=== PATIENT | male | born 1960 | race Caucasian/White ===

== ENCOUNTER 2019-05-11 06:04 | Observation (INO) ==
--- NOTE | 2019-04-20 13:30 | Anesthesiology Consultation ---
Date of Service April 20, 2019 Assessment & Plan (1) Encounter for pre-operative examination: Chart Review Chart Review: Acceptable Risk for Surgery and Patient NOT seen in Pre Admission Testing Consults Requested none History Surgery Operation Date: 05/11/19 10:25 Proposed Procedures p C3-C4 Anterior Cervical Discectomy Fusion, Spinal Cord Monitoring - Elias Saaverda DO Height/Weight Height: 6 ft Weight: 81.647 kg Allergies Allergy/AdvReac Type Severity Reaction Status Date / Time No Known Allergies Allergy Verified 04/18/19 15:39 Medications Home Medications Medication Instructions Recorded Confirmed Last Taken baclofen 10 mg PO TID PRN 04/18/19 04/18/19 Unknown Past Medical History Medical History Chronic back pain 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
[~2019-05-11 06:04] MED LIST: ACETAMINOPHEN 500 MG TAB PO SCH; CEFAZOLIN 2000MG 2,000 MG/15 ML SYR IV SCH; CeleBREX 200 MG CAP PO SCH; GABAPENTIN 600 MG DOSE PO SCH; LR 15ML/HR IV SCH
[2019-05-11] MEDS ORDERED: MIDAZOLAM HCL 1 MG/ML 2ML VIAL ONE (06:29)
[2019-05-11] MEDS ORDERED: fentaNYL citrate 100 MCG/2 ML VIAL ONE ×4 (06:29→08:58)
[2019-05-11] MEDS ORDERED: HYDROmorphone INJ 2 MG/ML SYR/VIAL ONE (06:30)
[2019-05-11] MEDS ORDERED: GLYCOPYRROLATE 0.2 MG/ML VIAL ONE (06:31)
[2019-05-11] MEDS ORDERED: DEXAMETHASONE SOD INJ 4 MG/ML VIAL ONE (06:31)
[2019-05-11] MEDS ORDERED: ONDANSETRON INJ 2 MG/ML 2 ML VIAL ONE (06:31)
[2019-05-11] MEDS ORDERED: PROPOFOL IV EMULSION 10 MG/ML 20 ML VIAL IV ONE (06:31)
[2019-05-11] MEDS ORDERED: ROCURONIUM BROMIDE 10 MG/ML 5 ML VIAL ONE (06:31)
[2019-05-11] MEDS ORDERED: LIDOCAINE HCL 2% 2 ML VIAL/AMP(20MG/ML) INFIL ONE (06:31)
[2019-05-11] MEDS ORDERED: NEOSTIGMINE METHYLSULFATE 1 MG/ML 10ML VIAL ONE (06:31)
[2019-05-11] MEDS ORDERED: PROPOFOL IV EMULSION 10 MG/ML 100 ML VIAL IV ONE (06:45)
[2019-05-11] MEDS ORDERED: BACITRACIN INJ 50,000 UNIT VIAL ONE (06:56)
[2019-05-11] MEDS ORDERED: LABETALOL HCL IV 5 MG/ML 20ML IV PRN (07:15)
[2019-05-11] MEDS ORDERED: ONDANSETRON INJ 2 MG/ML 2 ML VIAL IV PRN ×2 (07:15→10:34)
[2019-05-11] MEDS ORDERED: HYDROmorphone INJ 1 MG/ML SYRINGE IV PRN ×2 (07:15→10:34)
[2019-05-11] MEDS ORDERED: ATROPINE SULFATE 0.1 MG/ML 10ML SYR IV PRN (07:15)
[2019-05-11] MEDS ORDERED: PROMETHAZINE HCL 12.5 MG in SODIUM CHLORIDE 0.9% 50 ML IV PRN ×2 (07:15→10:34)
--- NOTE | 2019-05-11 07:31 | History & Physical Bridge Note ---
Date of Service May 11, 2019 History & Physical Bridge Note I have examined the patient, reviewed the History & Physical and in the interval since the performance of the History & Physical I have noted the following changes of clinical significance: no changes noted
--- NOTE | 2019-05-11 07:31 | History & Physical Report ---
Date of Service May 11, 2019 Assessment & Plan (1) Cervical stenosis of spinal canal: Anterior cervical discectomy and fusion C3-C4 Present on Admission?: Yes History of Present Illness Chief Complaint: Neck and arm pain Primary Care Provider: Ata Castillo presents with chronic persistent neck and arm pain. After failing extensive course of nonoperative care is here for surgical intervention. 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 Results & Data Vital Signs (Past 12 Hours) Vital Signs Temp Pulse Resp BP Pulse Ox 05/11/19 06:35 37 C 83 16 153/87 H 97
[2019-05-11] MEDS ORDERED: LARYING-O-JET KIT (LTA) ONE ×2 (08:41→09:28)
[2019-05-11] MEDS ORDERED: SUCCINYLCHOLINE CHLORIDE 20 MG/ML 10 ML VIAL ONE (08:41)
[2019-05-11] MEDS ORDERED: PHENYLEPHRINE 100MCG/ML 5ML SYR ONE ×2 (08:41→09:28)
[2019-05-11] MEDS ORDERED: FLOSEAL HEMOSTATIC MATRIX 10ML TOP ONE (08:47)
--- NOTE | 2019-05-11 08:58 | Operative Report ---
Post Operative Report Pre & Post Diagnosis Operation Date: 05/11/19 07:45 Pre-Op Diagnosis: Cervical spinal stenosis with radiculopathy Post-Op Diagnosis: Same I identified the patient and participated in the time-out.: Yes Procedure Operation Date: 05/11/19 07:45 Actual Procedures #1 anterior cervical discectomy with bilateral foraminotomies C3-4. #2 anterior cervical arthrodesis C3-4. #3 placement of globus stand-alone interbody cage 8 mm in height filled with DBM at C3-4. Surgeon Elias Saavedra, Ship Surveyor Andrey Hoffmann Estimated Blood Loss 10 Findings Consistent with Post-Op Diagnosis Specimens None Indications This is a 58-year-old male presents with the above-mentioned diagnosis after failing extensive course of nonoperative care like to undergo the above- mentioned procedure. Description of Procedure Patient was met with identified and informed consent obtained. Patient was then taken to the operative suite underwent intubation placed in a prone position the Pranav table on top of the Prashanth frame. All bony prominences well-padded eyes inspected to ensure no external pressure placed upon the peer at this point the anterior cervical spine was prepped and draped in normal sterile fashion. With the assistance of fluoroscopy identified the C3-4 disc patient transverse incision was placed along the right anterior aspect of the cervical spine overlying this region. Sharp dissection with the assistance of bipolar electrocautery was performed down to and exposing the anterior cervical spine at C3-4. A self-retaining retractor was placed. And then performed a complete discectomy of C3-4 out to the uncovertebral joints bilaterally. This included removal of all posterior annular fibers longitudinal ligament bilateral foraminotomies performed. Endplates were then burred to subcortical bleeding bone. An 8 mm globus cage filled with DBM tapped in position. Then placed 16 mm screws in the stand-alone interbody cage. The incision was then copiously irrigated explored to ensure no damage to surrounding structures remaining bleeding. 10 round MICHEAL drain inserted. Incision was then closed with 2 Vicryl in the fashion of 4 Monocryl for final skin closure. Steri-Strip sterile dressings placed. Patient will continue to PACU stable condition. Please note Andrey Hoffmann present throughout the entire procedure involved in patient positioning complex portions of the surgery and final skin closure. Lastly spinal cord monitoring was utilized that the procedure no changes noted. I attest to the content of the Intraoperative Record and any orders documented therein. Any exceptions are noted below.
[2019-05-11] MEDS ORDERED: ESMOLOL HCL INJ 10 MG/ML 10ML VIAL IV ONE (09:28)
[2019-05-11] MEDS ORDERED: LABETALOL HCL IV 5 MG/ML 20ML IV ONE (09:28)
--- NOTE | 2019-05-11 09:59 | Fluoroscopy Report ---
FL cervical 2-3V HISTORY: 58 years-old Male C3-4 ACDF chronic cervical spine pain COMPARISON: None available TECHNIQUE: 2 spot fluoroscopic images of the cervical spine were obtained utilizing 11.8 seconds fluo roscopy time FINDINGS: Anterior plate and screw fusion with discectomy changes at C3-C4. Partially visualized hardware is al so noted at the C5-C6 and C6-C7 levels. Alignment appears anatomic on these images. Mild multilevel s pondylitic spurring and facet arthrosis. IMPRESSION: Fluoroscopic assistance as above. Please see procedural report for further details. The above report was generated using voice recognition software. It may contain grammatical, syntax o r spelling errors. Electronically signed by: Danny Mendoza M.D. 05/11/2019 9:58 AM
--- NOTE | 2019-05-11 10:14 | Anesthesiology Progress Note ---
Date of Service May 11, 2019 Anesthesia Post Procedure Vital Signs Vital Signs: Temp Pulse Pulse Resp BP Pulse Ox 05/11/19 10:05 36.2 C L 70 16 151/92 H 99 05/11/19 09:55 36.2 C L 70 18 146/87 H 99 05/11/19 09:45 62 18 148/87 H 98 05/11/19 09:35 71 18 137/84 100 05/11/19 09:25 75 18 141/84 H 99 05/11/19 09:19 36.0 C L 77 18 142/88 H 97 05/11/19 06:35 37 C 83 16 153/87 H 97 Pain Intensity Right Arm: Pain Intensity: 2 Transfer of Care Handoff Completed per policy Notes Mental Status: alert / awake / arousable Patient Amnestic to Procedure: Yes Nausea / Vomiting: adequately controlled Pain: adequately controlled Airway Patency, RR, SpO2: stable & adequate BP & HR: stable & adequate Hydration State: stable & adequate Anesthetic Complications: no major complications apparent
[2019-05-11] MEDS ORDERED: RACEPINEPHRINE 2.25% NEBU SOLN 0.5 ML VIAL INH PRN (10:34)
[2019-05-11] MEDS ORDERED: ONDANSETRON 4 MG TAB PO PRN (10:34)
[2019-05-11] MEDS ORDERED: LORazepam 0.5 MG/1 ML VIAL IV PRN (10:34)
[2019-05-11] MEDS ORDERED: SOD PHOSPHATE/SOD BIPHOSPHATE ENEMA 132 ML BTL PR PRN (10:34)
[2019-05-11] MEDS ORDERED: HYDROmorphone INJ 0.5 MG/0.5 ML SYR IV PRN (10:34)
[2019-05-11] MEDS ORDERED: BACLOFEN 10 MG TAB PO PRN (10:34)
[2019-05-11] MEDS ORDERED: MAGNESIUM HYDROXIDE SUSP 30 ML UDC PO PRN (10:34)
[2019-05-11] MEDS ORDERED: DO NOT ADMINISTER PNEUMOCOCCAL VACCINE PRN (10:34)
[2019-05-11] MEDS ORDERED: LORazepam 0.5 MG TAB PO PRN (10:34)
[2019-05-11] MEDS ORDERED: ACETAMINOPHEN 500 MG TAB PO PRN (10:34)
[2019-05-11] MEDS ORDERED: DO NOT ADMINISTER FLU VACCINE PRN (10:34)
[2019-05-11] MEDS ORDERED: METOCLOPRAMIDE HCL INJ 5 MG/ML 2 ML VIAL IV PRN (10:34)
[2019-05-11] MEDS ORDERED: TRAMADOL HCL 50 MG TABLET PO PRN (10:34)
[2019-05-11] MEDS ORDERED: ACETAMINOPHEN 1,000 MG/100 ML VIAL IV PRN (10:34)
[2019-05-11] MEDS ORDERED: NALOXONE HCL 0.4 MG/1 ML VIAL/CARP IV PRN (10:34)
[2019-05-11] MEDS ORDERED: FAMOTIDINE 20 MG TAB PO PRN (10:34)
[2019-05-11] MEDS ORDERED: DEXAMETHASONE SOD PHOSPHATE 8 MG in SYRINGE 0 ML IV PRN (10:34)
[2019-05-11] MEDS ORDERED: ALUMINUM/MAGNESIUM SUSP 30 ML UDC PO PRN (10:34)
[2019-05-11] MEDS: LACTATED RINGER'S 1,000 ML IV SCH ×2 (11:01→20:08)
[2019-05-11] MEDS: OXYCODONE HCL IR 5 MG TAB (IMMEDIATE RELEASE) PO PRN ×2 (14:40→23:50)
[2019-05-11] MEDS: CEFAZOLIN 2000MG 2,000 MG/15 ML SYR IV SCH ×2 (15:55→23:50)
[2019-05-11] MEDS ORDERED: DOCUSATE SODIUM/SENNA 50/8.6MG TAB PO SCH (21:00)
[2019-05-12] MEDS ORDERED: POLYETHYLENE (MIRALAX) 17 GM PACK PO SCH (08:59)
[2019-05-13] MEDS ORDERED: bisacodyL 10 MG SUPP PR PRN (08:59)
--- NOTE | 2019-05-21 07:38 | Discharge Summary ---
Date of Service May 21, 2019 Admission HPI Per Admitting Provider L presents with chronic persistent neck and arm pain. After failing extensive course of nonoperative care is here for surgical intervention. Principal Diagnosis Cervical spinal stenosis with radiculopathy Discharge Data Allergies Allergy/AdvReac Type Severity Reaction Status Date / Time No Known Allergies Allergy Verified 05/11/19 06:42 Procedures Performed Operation Date: 05/11/19 07:45 Actual Procedures p C3-C4 Anterior Cervical Discectomy Fusion, Spinal Cord Monitoring(Not Applicable) - Elias Saavedra DO Ordered Studies 05/11/19 07:45 FL cervical 2-3V Routine FL fluoroscopy <1hr Routine Hospital Course (1) Cervical stenosis of spinal canal: Patient underwent anterior cervical discectomy and fusion tolerated as well as taken to orthopedic for postoperative. Postop pain when he was swallowing well no hoarseness arm symptoms improved strength intact. Subsequently discharged home. Discharge orders instructions found in the chart for further review. Total Time Total Time Spent Total Time Spent (In Minutes): 20 minutes Discharge Plan Discharge Items Patient Disposition: Home - Self-Care Reason For Visit: Spinal Stenosis, Cervical Region Discharge Diagnosis: Cervical spinal stenosis with radiculopathy Activity: Per Instructions section Non-emergency contact: Primary Care Provider Call non-emergency contact if: you have any medication questions Follow-up/Referrals: Ata Mckee D.O. [Primary Care Provider] - Diet: Regular Addtl Attending Provider Instructions: ACTIVITY RECOMMENDATIONS: SELF CARE INSTRUCTIONS AFTER CERVICAL FUSIONS 1. No smoking. Smoking drastically decreases the chance of a solid fusion. 2. No bending, lifting more than 5 pounds, or twisting (roll like a log when turning in bed). 3. You may shower 3 days after surgery. Thoroughly dry wound. Do not soak in the tub. 4. Cervical collar: Must be worn at all times including sleeping. You may remove the brace only to bath, eat and if you are sitting in a recliner. 5. Please walk as much as you can for exercise. Gradually increase the distance that you walk as your endurance increases. SPECIAL CARE INSTRUCTIONS: VERY IMPORTANT TO READ AND REVIEW A. Do not take any anti-inflammatory medications (i.e. Indocin, Advil, Aspirin, Naprosyn, Aleve, Motrin, etc.) as these may inhibit the chance of a solid fusion. Tylenol is okay to take. B. Your surgical incision has been closed with a cosmetic suture under the skin that will dissolve in about 6 weeks. In 14 days, you can use a pair of clean scissors and cut the suture that is left outside of the skin at the ends of your incision. C. Complications are uncommon, but please contact us if you have any signs or symptoms of: 1. wound infection (fever higher than 102.5 degrees F, redness, separation of wound, drainage, or increasing pain from the incision) 2. blood clots in legs (pain, swelling, redness and warmth in legs) 3. urinary tract infection (fever higher than 102.5 degrees, burning upon urination or increased frequency of urination) 4. nerve problems (inability to walk on your toes or heels, numbness, loss of bowel or bladder control) 5. any other symptoms that concern you. D. Please call the office at if you have any concerns or questions about your operation or recovery. MANAGING PAIN AFTER SPINAL SURGERY 1. Narcotic medication is intended for short-term use and will be provided for surgical pain. Surgical pain usually lasts for a period of 4-6 weeks. Narcotic medication includes Percocet, Vicodin, Darvocet, Tylenol #3 or Lortab. 2. Longer-term pain is more appropriately treated with non-narcotic medication such as Tylenol ES. 3. Muscle spasm is not appropriately treated with narcotics. Muscle relaxers such as Soma, Flexeril or Skelaxin can be used along with Tylenol ES. 4. Remember that we all live with some "aches and pains". This is not unusual or uncommon after an injury or as we get older. 5. We will provide appropriate medication within the normal guidelines of their prescribed use. We will also be very cautious and aware of potential abuse and extended duration of patients' medication needs. 6. Please allow 2-3 days to process refills. Prescriptions will not be mailed but must be picked up at the office. FOLLOW UP VISIT: Keep your scheduled follow-up appointment. Any questions, please call the office at . Pending Studies at Discharge: No Stand-Alone Forms: [facility] [place] Order Prescriptions: New tramadol 50 mg Tablet 50 mg PO Q4H PRN (Reason: Pain, Moderate) Qty: 20 RF: 0 oxycodone 5 mg Tablet 5 mg PO Q4H PRN (Reason: Pain, Severe) Qty: 20 RF: 0 Continued baclofen 10 mg Tablet 10 mg PO TID PRN (Reason: MUSCLE SPASMS) RF: 0 Discharge Orders: Discharge Order (Routine); Ordered 05/12/19 Ordered By: Elias Knox/Other Patient Handouts: Surgery Prevent DVT After, ED Stockings Gus Admission Data Admit Date/Time: 05/11/19 09:00 Attending Provider: Elias Saavedra Admit Provider: Elias Saavedra Primary Care Provider: Ata Mckee Other Interventions: Discharge Summary Assessment (RN) Last Done: 05/12/19 09:02 DC Date/Time DO NOT enter until pt leaves facility: 05/12/19 10:45
== END 2019-05-12 10:45 | disposition home or self-care (01) ==
LOC: ASU 06:04 → 3E 06:04

== ENCOUNTER 2024-10-19 06:21 | Observation (INO) ==
--- NOTE | 2024-09-24 12:56 | PAT Medication Instructions ---
Medication Instructions Date of Service September 24, 2024 Home Medications baclofen 10 mg tablet 10 mg PO TID PRN MUSCLE SPASMS cholecalciferol (vitamin D3) 125 mcg (5,000 unit) tablet (Vitamin D3) 125 mcg PO HS coenzyme Q10 100 mg capsule (Co Q-10) 100 mg PO HS multivitamin 1 tab PO HS rosuvastatin 10 mg tablet 10 mg PO HS STOP taking 2 weeks before surgery (or as soon as possible if surgery is within 2 weeks) coenzyme Q10 100 mg capsule (Co Q-10) 100 mg PO HS Take morning of surgery baclofen 10 mg tablet 10 mg PO TID PRN MUSCLE SPASMS (if needed) Take evening before surgery baclofen 10 mg tablet 10 mg PO TID PRN MUSCLE SPASMS (if needed) cholecalciferol (vitamin D3) 125 mcg (5,000 unit) tablet (Vitamin D3) 125 mcg PO HS multivitamin 1 tab PO HS rosuvastatin 10 mg tablet 10 mg PO HS Other Notes If you have any questions please call us at [phone] or [phone] or [phone] or [phone]
--- NOTE | 2024-09-28 10:46 | Anesthesiology Consultation ---
Date of Service September 28, 2024 Assessment & Plan (1) Encounter for pre-operative examination: - Infectious disease screening: Per assessment on 09/28/24- No known recent infectious disease contacts or current infectious disease symptoms. - Cardiology televisit (05/24/24): "Misael had originally presented to our office due to chest pain.. His symptoms occur with rest and with activity. He does report being highly active walking 10 to 12 miles per day. 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 Chest pain- thankfully stress test was normal. Suspect that his pain was musculoskeletal. I did ask him to discuss his back and neck pain with his PCP.. Near syncope- EKG and echo normal. He had not had any further episodes." - Patient acceptable risk for surgery pending surgeon-ordered PCP preop evaluation (Dr. Galvez/[facility]; appt 10/09). Chart Review Chart Review: Patient seen in Pre Admission Testing Teaching & Discussion Pre-Anesthesia Teaching/Discussion Notes: Instructed NPO after midnight before surgery,except medications with 15 cc of water. Medication instructions provided according to the PAT guidelines. History Surgery Operation Date: 10/19/24 10:45 Proposed Procedures p C4-C5 Anterior Cervical Discectomy and Fusion, Spinal Cord Monitoring - Elias Saavedra, Height/Weight Height: 6 ft Weight: 85.4 kg Allergies Allergy/AdvReac Type Severity Reaction Status Date / Time No Known Allergies Allergy Verified 09/24/24 07:50 Medications Home Medications Medication Instructions Recorded Confirmed Last Taken baclofen 10 mg tablet 10 mg PO TID PRN MUSCLE SPASMS 04/18/19 09/24/24 05/06/19 cholecalciferol (vitamin D3) 125 125 mcg PO HS 09/24/24 09/24/24 Unknown mcg (5,000 unit) tablet (Vitamin D3) coenzyme Q10 100 mg capsule (Co 100 mg PO HS 09/24/24 09/24/24 Unknown Q-10) multivitamin 1 tab PO HS 09/24/24 09/24/24 Unknown rosuvastatin 10 mg tablet 10 mg PO HS 09/24/24 09/24/24 Unknown Past Medical History Medical History Chronic back pain 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 ACDF 2019, C3-C4 ACDF ROM is limited Hx of tooth extraction w/implants placed Past Anesthesia History No Family Hx of Anesthesia Complications and Other (Patient reports awareness wi th previous cervical surgery) History of PONV No Hx of PONV and No Hx of Motion Sickness Social History Smoking Status: Former smoker Do You Dip or Chew Tobacco: No Smoking End Date: Quit 2016 Hx Alcohol Use: Yes alcohol intake frequency: holidays/special occasions only Hx Substance Use: No substance use type: does not use Review of Systems Patient denies chest pain, shortness of breath, dyspnea on exertion, fever, chills, cough, wheezing. Physical Exam Vital Signs BP 136/80 P 74 TEMP 98.2 SP02 95%RA RESP 16 Physical Decreased cervical extension range of motion. Full TMJ range of motion. TMD 3 finger breaths Mallampati Score II Dentition: + upper/lower full dentures with upper/lower implants attachment Lungs: clear throughout to auscultation Cardiac: regular rate and rhythm, no murmurs noted Spine: normal Carotid arteries: negative bruit Extremities: no LE edema Lab Results Anesthesia Preop Results Results Anesthesia Widget: WBC 6.29 K/ul (4.8-10.8) 09/28/24 Hgb 15.5 g/dl (14.0-18.0) 09/28/24 Hct 45.9 % (42.0-52.0) 09/28/24 Plt 273 K/uL (130-400) 09/28/24 Na 139 mmol/L (136-145) 09/28/24 K 4.3 mmol/L (3.5-5.1) 09/28/24 Cl 104 mmol/L (98-107) 09/28/24 CO2 29 mmol/L (21-32) 09/28/24 BUN 12 mg/dl (6-23) 09/28/24 Creat 0.98 mg/dl (0.6-1.4) 09/28/24 Glucose Level 92 mg/dl (70-99(Fasting)) 09/28/24 PT 10.4 Seconds (9.0-12.0) 09/28/24 PTT 30 Seconds (21-31) 09/28/24 INR 1.0 (0.9-1.1) 09/28/24 Urine Color Yellow 09/28/24 Urine Appearance Clear (Clear) 09/28/24 Urine pH 6.0 (4.5-7.5) 09/28/24 Urine Specific Price 1.005 (1.000-1.030) 09/28/24 Urine Protein Negative (Negative) 09/28/24 Urine Glucose (UA) Negative (Negative) 09/28/24 Urine Ketones Negative (Negative) 09/28/24 Urine Blood Negative (Negative) 09/28/24 Urine Nitrite Negative (Negative) 09/28/24 Urine Bilirubin Negative (Negative) 09/28/24 Urine Urobilinogen Negative (Negative) 09/28/24 Urine Leukocyte Esterase Negative (Negative) 09/28/24 Blood Type O Negative 09/28/24 Antibody Screen NEGATIVE 09/28/24 Testing Electrocardiogram Date: 12/14/23 NSR at 75bpm. iRBBB. 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 Chest X-Ray Date: 09/28/24 FINDINGS: Heart size and pulmonary vasculature are normal. No effusion or consolidation. IMPRESSION: No acute findings. Stress Test Date: 01/17/24 No LV RWMA. LVEF 60-65%. 94% MPHR. "Normal stress echocardiogram."
[2024-10-19] MEDS: GABAPENTIN 600 MG DOSE PO SCH (06:37)
[2024-10-19] MEDS: ACETAMINOPHEN 500 MG TAB PO SCH (06:37)
[2024-10-19] MEDS: LR 60ML/HR IV SCH (06:37)
[2024-10-19] MEDS: CeleBREX 200 MG CAP PO SCH (06:37)
[2024-10-19] MEDS ORDERED: ATROPINE SULFATE 0.1 MG/ML 10ML SYR IV PRN (06:51)
[2024-10-19] MEDS ORDERED: DROPERIDOL 5 MG/2 ML VIAL IV PRN (06:51)
[2024-10-19] MEDS ORDERED: ONDANSETRON INJ 2 MG/ML 2 ML VIAL IV PRN ×2 (06:51→14:13)
[2024-10-19] MEDS ORDERED: HYDROmorphone INJ 1 MG/ML SYRINGE IV PRN ×2 (06:51→14:13)
[2024-10-19] MEDS ORDERED: LABETALOL HCL IV 5 MG/ML 20ML IV PRN (06:51)
[2024-10-19] MEDS: LR 15ML/HR IV SCH (06:52)
[2024-10-19] MEDS ORDERED: MIDAZOLAM HCL 1 MG/ML 2ML VIAL ONE (06:59)
[2024-10-19] MEDS ORDERED: fentaNYL citrate PF 100 MCG/2 ML VIAL ONE (06:59)
[2024-10-19] MEDS ORDERED: PROPOFOL IV EMULSION 10 MG/ML 20 ML VIAL IV ONE ×2 (07:00→07:02)
[2024-10-19] MEDS ORDERED: ROCURONIUM BROMIDE 10 MG/ML 5 ML VIAL IV ONE ×3 (07:00→07:05)
[2024-10-19] MEDS ORDERED: ONDANSETRON INJ 2 MG/ML 2 ML VIAL ONE (07:00)
[2024-10-19] MEDS ORDERED: DEXAMETHASONE SOD INJ 4 MG/ML VIAL ONE (07:00)
[2024-10-19] MEDS ORDERED: GLYCOPYRROLATE 0.2 MG/ML VIAL ONE (07:00)
[2024-10-19] MEDS ORDERED: LIDOCAINE 2% 2 ML VIAL/AMP(20MG/ML) INFIL ONE (07:00)
--- NOTE | 2024-10-19 07:48 | History & Physical Bridge Note ---
Date of Service October 19, 2024 History & Physical Bridge Note I have examined the patient, reviewed the History & Physical and in the interval since the performance of the History & Physical I have noted the following changes of clinical significance: no changes noted
--- NOTE | 2024-10-19 07:49 | History & Physical Report ---
Date of Service October 19, 2024 Assessment & Plan (1) Cervical stenosis of spinal canal: Plan: C4-C5 anterior cervical discectomy and fusion History of Present Illness Chief Complaint: Neck and arm pain Primary Care Provider: NO PCP This is a 64-year-old male presents with chronic persistent neck and arm pain after failing course of nonoperative care is here for surgical invention. Allergies Allergy/AdvReac Type Severity Reaction Status Date / Time No Known Allergies Allergy Verified 10/19/24 06:24 Home Medications Medication Instructions Recorded Confirmed Type baclofen 10 mg tablet 10 mg PO TID PRN MUSCLE SPASMS 04/18/19 10/19/24 History cholecalciferol (vitamin D3) 125 125 mcg PO HS 09/24/24 10/19/24 History mcg (5,000 unit) tablet (Vitamin D3) coenzyme Q10 100 mg capsule (Co 100 mg PO HS 09/24/24 10/19/24 History Q-10) rosuvastatin 10 mg tablet 10 mg PO HS 09/24/24 10/19/24 History Past Med/Surg History Problem List Cervical stenosis of spinal canal Encounter for pre-operative examination Medical History 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 Required: No Beliefs That Will Affect Care: None Current Living Situation: Significant Other Other Information That Helps Us Care for You: No Feels Safe at Home: Yes Safety Concerns: Feels Safe At This Time Assistive Devices: Denture - Upper, Denture - Lower, Glasses and Hearing Aid - Bilateral Assistive Devices Comment: "snap fit" dentures/implants; will leave hearing aids home DOS Physical Exam Physical Exam: Patient is alert and oriented Heart regular rhythm Lungs clear Results & Data Results & Data Vital Signs (Past 12 Hours) Vital Signs Temp Pulse Resp BP Pulse Ox O2 Del Method 10/19/24 06:27 36.6 C 77 20 179/93 H 95 Room Air
[2024-10-19] MEDS: ceFAZolin 2000MG 2,000 MG/15 ML SYR IV SCH ×2 (07:56→16:21)
[2024-10-19] MEDS ORDERED: HYDROmorphone INJ 2 MG/ML SYR/VIAL ONE (08:29)
[2024-10-19] MEDS ORDERED: SUGAMMADEX SODIUM 200 MG/2 ML VIAL IV ONE (08:53)
[2024-10-19] MEDS: ceFAZolin 330 MG/ML 1 GM VIAL ONE (09:00)
--- NOTE | 2024-10-19 09:11 | Operative Report ---
Post Operative Report Pre & Post Diagnosis Operation Date: 10/19/24 07:45 Pre-Op Diagnosis: Cervical Stenosis of Spinal Canal, Cervical Radiculopathy Post-Op Diagnosis: Cervical Stenosis of Spinal Canal, Cervical Radiculopathy I identified the patient and participated in the time-out.: Yes Procedure Operation Date: 10/19/24 07:45 Actual Procedures #1 anterior cervical discectomy with bilateral foraminotomies C4-C5. #2 anterior cervical arthrodesis C4-C5. #3 placement of Spira 9 mm cage filled with os design bone graft C4-C5. #4 application of K2 M plate and screws across C4-C5. Surgeon Elias Saavedra, DO Mining Engineer Andrey Luna Estimated Blood Loss 10 Findings Consistent with Post-Op Diagnosis Specimens None Indications This is a 64-year-old male presents publish diagnosis of failed course of nonoperative care is here for surgical invention. Description of Procedure Patient was met with identified informed consent obtained. Patient was then taken to the operative suite underwent intubation placed in spine position ingestible head [place] home visitor home base head start. All bony prominences well-padded eyes inspected to ensure no external pressure placed upon them. This point the anterior cervical spine was prepped and draped in normal sterile fashion. The assistance of fluoroscopy defy the C for C5 displaced a transverse incision was placed on the right anterior aspect of the cervical spine overlying this region. Blunt dissection with assistance of bipolar electrocautery performed down to and exposing the anterior cervical spine at C4-C5. A self-retaining retractors placed. A complete discectomy of C4-C5 was then performed up to the uncovertebral joints bilaterally. [place] distracting pins utilized to assist in visualization. I removed all posterior annular fibers longitudinal ligament bilateral foraminotomies performed. Endplates burred to subcortical bleeding bone. Eight 9 mm Spira cage filled with os design bone graft tapped in position. Distracting and pressors removed and a K2 M plate and screws applied with the assistance of fluoroscopy. The incision was then copiously irrigated explored to ensure no damage to surrounding structures or remaining bleeding. 10 round MICHEAL drain inserted. The incision was then closed with 2 Vicryl in the fashion of 4 Monocryl for final skin closure. Steri-Strips sterile dressing placed. Patient waken taken to PACU in stable condition. Please note spinal cord monitoring was utilized at the procedure no changes noted. Andrey Hoffmann was present throughout the entire procedure and all the patient positioning complex portion of the surgery and final skin closure. I attest to the content of the Intraoperative Record and any orders documented therein. Any exceptions are noted below.
--- NOTE | 2024-10-19 10:00 | Fluoroscopy Report ---
FL cervical 2-3V CLINICAL HISTORY: ACDF C4-C5 COMPARISON STUDY: None FLUOROSCOPY TIME: 7 seconds FLUOROSCOPY IMAGES: 3 EXPOSURE DOSE: 0.6 mGy FINDINGS: Fluoroscopy was provided for cervical spine surgery. IMPRESSION: Intraoperative fluoroscopy. ACT 112: Negative or not required by law. Electronically signed by: Aiden Rosado M.D. 10/19/2024 9:59 AM
--- NOTE | 2024-10-19 10:34 | Anesthesiology Progress Note ---
Date of Service October 19, 2024 Anesthesia Post Procedure Vital Signs Vital Signs: Temp Pulse Pulse Resp BP Pulse Ox O2 Del Method 10/19/24 10:25 91 H 16 148/80 H 96 Nasal Cannula 10/19/24 10:15 82 16 158/85 H 95 Nasal Cannula 10/19/24 10:05 91 H 16 148/90 H 95 Nasal Cannula 10/19/24 09:55 85 16 152/86 H 95 Nasal Cannula 10/19/24 09:45 86 16 148/91 H 96 Nasal Cannula 10/19/24 09:35 94 H 14 146/93 H 96 Oxymask 10/19/24 09:25 36.0 C L 93 H 17 148/92 H 96 Oxymask 10/19/24 06:27 36.6 C 77 20 179/93 H 95 Room Air O2 Flow Rate 10/19/24 10:25 4 10/19/24 10:15 4 10/19/24 10:05 4 10/19/24 09:55 4 10/19/24 09:45 4 10/19/24 09:35 5 10/19/24 09:25 5 10/19/24 06:27 Pain Intensity Bilateral Shoulder: Pain Intensity: 6 Transfer of Care Handoff Completed per policy Notes Mental Status: alert / awake / arousable Patient Amnestic to Procedure: Yes Nausea / Vomiting: adequately controlled Pain: adequately controlled Airway Patency, RR, SpO2: stable & adequate BP & HR: stable & adequate Hydration State: stable & adequate Anesthetic Complications: no major complications apparent
[2024-10-19] MEDS ORDERED: LORazepam 2 MG/1 ML VIAL IV PRN (14:13)
[2024-10-19] MEDS ORDERED: SOD PHOSPHATE/SOD BIPHOSPHATE ENEMA 132 ML BTL PR PRN (14:13)
[2024-10-19] MEDS ORDERED: NALOXONE HCL 0.4 MG/1 ML VIAL/CARP IV PRN (14:13)
[2024-10-19] MEDS ORDERED: oxyCODONE HCL IR 5 MG TAB (IMMEDIATE RELEASE) PO PRN (14:13)
[2024-10-19] MEDS ORDERED: BACLOFEN 10 MG TAB PO PRN (14:13)
[2024-10-19] MEDS ORDERED: DO NOT ADMINISTER FLU VACCINE PRN (14:13)
[2024-10-19] MEDS ORDERED: diphenhydrAMINE Capsule 25 MG CAP PO PRN (14:13)
[2024-10-19] MEDS ORDERED: dexAMETHasone 8 MG in SYRINGE 0 ML IV PRN (14:13)
[2024-10-19] MEDS ORDERED: FAMOTIDINE 20 MG TAB PO PRN (14:13)
[2024-10-19] MEDS ORDERED: traMADol HCL 50 MG TABLET PO PRN (14:13)
[2024-10-19] MEDS ORDERED: RACEPINEPHRINE 2.25% NEBU SOLN 0.5 ML VIAL INH PRN (14:13)
[2024-10-19] MEDS ORDERED: DO NOT ADMINISTER PNEUMOCOCCAL VACCINE PRN (14:13)
[2024-10-19] MEDS ORDERED: ACETAMINOPHEN 500 MG TAB PO PRN (14:13)
[2024-10-19] MEDS ORDERED: METOCLOPRAMIDE HCL INJ 5 MG/ML 2 ML VIAL IV PRN (14:13)
[2024-10-19] MEDS ORDERED: LORazepam 0.5 MG TAB PO PRN (14:13)
[2024-10-19] MEDS ORDERED: ALUMINUM/MAGNESIUM SUSP 30 ML UDC PO PRN (14:13)
[2024-10-19] MEDS ORDERED: MAGNESIUM HYDROXIDE SUSP 30 ML UDC PO PRN (14:13)
[2024-10-19] MEDS ORDERED: hydrOXYzine HCl 25 MG TAB PO PRN (14:13)
[2024-10-19] MEDS ORDERED: bisacodyL 10 MG SUPP PR PRN (14:13)
[2024-10-19] MEDS ORDERED: ACETAMINOPHEN 1,000 MG/100 ML VIAL IV PRN (14:13)
[2024-10-19] MEDS ORDERED: PROMETHAZINE 12.5 MG/50.5 ML BAG IV PRN (14:13)
[2024-10-19] MEDS ORDERED: HYDROmorphone INJ 0.5 MG/0.5 ML SYR IV PRN (14:13)
[2024-10-19] MEDS ORDERED: ONDANSETRON 4 MG OD TAB PO PRN (14:13)
[2024-10-19] MEDS ORDERED: NON-FORMULARY MEDICATION (Coenzyme Q10 [Co Q-10] 100 mg Capsule) PO SCH (21:00)
[2024-10-19] MEDS: DOCUSATE SODIUM/SENNA 50/8.6MG TAB PO SCH (21:26)
[2024-10-19] MEDS: CHOLECALCIFEROL 125 MCG (5,000 UNITS) TAB PO SCH (21:26)
[2024-10-19] MEDS: ROSUVASTATIN CALCIUM 10 MG TAB PO SCH (21:26)
[2024-10-20] MEDS: POLYETHYLENE (MIRALAX) 17 GM PACK PO SCH (05:35)
[2024-10-20 05:52] VITALS: RESP 18
[2024-10-20 07:14] VITALS: BP 143/77; TEMP 97.7
[2024-10-20] MEDS: dexAMETHasone 6 MG in SYRINGE 0 ML IV SCH (08:47)
--- NOTE | 2024-10-20 10:35 | Discharge Summary ---
Date of Service October 20, 2024 Admission HPI Per Admitting Provider This is a 64-year-old male presents with chronic persistent neck and arm pain after failing course of nonoperative care is here for surgical invention. Discharge Data Procedures Performed Operation Date: 10/19/24 07:45 Actual Procedures p C4-C5 Anterior Cervical Discectomy and Fusion, Spinal Cord Monitoring(Not Applicable) - Elias Saavedra DO Hospital Course (1) Cervical stenosis of spinal canal: Patient is a pleasant 64-year-old male with history physical examination and radiographic images consistent with the above-mentioned diagnosis. This reason he was brought to the operating room on 10/19/2024 undergone an anterior cervical discectomy and fusion. This performed by Dr. Saavedra under general anesthesia. The patient left to the operating room with a MICHEAL drain in place and was transferred to PACU in stable condition. Is then transferred to the orthopedic floor. He had a collar in place. Throughout his hospital course his dressing remained clean dry and intact. The paresthesias in upper extremities had improved. He is able to tolerate p.o. without difficulties swallowing was unaffected. On postoperative day 1 he was deemed safe for home discharge. His discharge instructions were to change his dressing once daily till there is no drainage once there is no drainage he may shower. He should not lift anything heavier than 5 to 7 pounds. He is to keep his cervical collar in place at all times except for showers and meals. He was to follow-up with our office approximately 2 weeks out from surgery or sooner if he developed any increased pain swelling difficulty swallowing increasing pain going down his arms or hands.
[2024-10-20 11:45] VITALS: O2SAT 93
[2024-10-20 12:26] VITALS: PULSE 80
== END 2024-10-20 12:26 | disposition home or self-care (01) | DRG 473 ==
LOC: ASU 06:21 → 3E 09:13 → INTOOBSV 09:13